=== PATIENT | male | born 1970 | race Caucasian/White ===

== ENCOUNTER 2024-12-28 13:37 | Emergency (ER) | payer BC, SELFPAY ==
[2024-12-28 13:51] VITALS: BP 128/96; PULSE 119; RESP 16; TEMP 36.2; O2SAT 100
--- NOTE | 2024-12-28 14:00 | ED.EXTPRO ---
HPI - Extremity Problem General Chief complaint: Extremity Problem,Nontraumatic Stated complaint: R SHOULDER PAIN Time Seen by Provider: 12/28/24 13:39 Source: patient Mode of arrival: ambulatory Limitations: no limitations History of Present Illness HPI Narrative: Maco is a 54-year-old male patient presenting to the clinic today with complaints of right shoulder pain x3 weeks. Reports 3 weeks ago he was working underneath a car with his hands. No known injury to his right shoulder. States there is pain to the anterior and lateral shoulder joint. Pain is worse with movement with intermittent radiation pain down into his arm. Denies any chest pain or shortness of breath. Has been taking ibuprofen for her symptoms. Currently rates his pain a 6/10 with rest and a 9/10 with movement Related Data Home Medications ?Medication ?Instructions ?Recorded ?Confirmed ?Last Taken ?Type Hydroxyzine Compound 12/28/24 Unknown History empagliflozin 10 mg tablet 10 mg PO DAILY 12/28/24 12/28/24 Unknown History (Jardiance) escitalopram oxalate 20 mg tablet 20 mg PO DAILY 12/28/24 12/28/24 Unknown History (Lexapro) gabapentin 12/28/24 Unknown History Allergies Allergy/AdvReac Type Severity Reaction Status Date / Time No Known Allergies Allergy Verified 12/28/24 14:00 Review of Systems Review of Systems: Pertinent positives per HPI. Patient denies any fever, chills, rash, headache, visual changes, dizziness, cough, runny nose, sore throat, shortness of breath, chest pain, palpitations, nausea, vomiting, diarrhea, constipation, abdominal pain, or any urinary issues. PMFSH Comments At the time of my signature, I reviewed and agree with the nursing past medical, surgical, social, and family history. There is no relevant family history pertinent to the patient complaint. Exam Narrative: General: Well-developed, well nourished, in no apparent distress Head: Normocephalic, atraumatic. Cardio: Regular rate and rhythm, s1 and s2 normal, no murmur appreciated. Resp: Clear to auscultation bilaterally, no rhonchi, rales, wheezing or rubs. Musculoskeletal: No deformity, no bruising or swelling noted, tender to palpation over the anterior and lateral right shoulder joint, pain with lifting his arm above his head, pain with empty can and full can testing without laxity, pain with posterior reach and cross-arm test, range of motion grossly normal, muscle strength strong and equal, peripheral pulse strong, no edema, no cyanosis, normal gait and station Course Course Emergency Course: Portions of this record may have been created with voice recognition software. Level of Care: Express Care Visit Vital Signs Vital signs: Vital Signs Temperature 36.2 C L 12/28/24 13:51 Pulse Rate 119 H 12/28/24 13:51 Respiratory Rate 16 12/28/24 13:51 Blood Pressure 128/96 H 12/28/24 13:51 Pulse Oximetry 100 12/28/24 13:51 Temperature 36.2 C L 12/28/24 13:51 Pulse Rate 119 H 12/28/24 13:51 Respiratory Rate 16 12/28/24 13:51 Blood Pressure 128/96 H 12/28/24 13:51 Pulse Oximetry 100 12/28/24 13:51 Vital signs reviewed MDM - Extremity (Nontraumatic) MDM Narrative Medical decision making narrative: At the time of visit patient is resting comfortably on the exam table. Patient appears to be nontoxic. Complaints of right shoulder pain x3 weeks. Reports 3 weeks ago he was working underneath a car with his hands. No known injury to his right shoulder. States there is pain to the anterior and lateral shoulder joint. Pain is worse with movement with intermittent radiation pain down into his arm. Denies any chest pain or shortness of breath. Has been taking ibuprofen for her symptoms. Currently rates his pain a 6/10 with rest and a 9/10 with movement. On exam patient has tenderness to the anterior and lateral over the rotator cuff, pain with empty can of full can without laxity, negative drop-arm test, pain with raising his arm above his head over the anterior and lateral shoulder, good posterior reach Plan: I suspect patient has right shoulder tendinitis. Arm sling was given. Prescription for Medrol Dosepak was sent to the pharmacy. Supportive measures were discussed with the patient and they voiced understanding discharge instructions and agrees to treatment plan. Return precautions reviewed Differential Diagnosis Differential diagnosis: Likely other (Shoulder strain, tendinitis, rotator cuff injury) Discharge Plan Discharge Clinical Impression: Right shoulder tendinitis Patient Disposition: Home Condition: Stable Instructions: Antibiotic Form, Rotator Cuff Tendinitis (ED) Additional Instructions: I suspect you have rotator cuff tendinitis. Take Medrol Dosepak as prescribed Rest, ice, and wear arm sling times 2-3 days as directed Tylenol/motrin for pain as discussed. May take 600 mg of Motrin every 8 hours and take 1 g of Tylenol every 8 hours as needed for pain Follow up with your PCP if symptoms persist more than 1 week. Patient Language: [place] Prescriptions: New methylprednisolone [Medrol (Jitendra)] 4 mg tablets,dose pack See Rx Instructions PO .COMPLEX Qty: 21 0RF Rx Instructions: orally per package directions No Action Jardiance 10 mg tablet 10 mg PO DAILY escitalopram oxalate [Lexapro] 20 mg tablet 20 mg PO DAILY gabapentin Hydroxyzine Compound Follow-up/Referrals: PHYSICIAN,GUEST ROOM INSPECTOR [Primary Care Provider, Internal Medicine] Time of Disposition: 14:01 Quality NIHSS Nursing Documentation ED NIHSS nursing documentation: reviewed/agree
== END 2024-12-28 14:18 | disposition home or self-care (01) ==
PROVIDERS: Emergency Provider Nurse Practitioner Family
DX: M67.813 Other specified disorders of tendon, right shoulder (principal); E11.9 Type 2 diabetes mellitus without complications; Z79.85 Long-term (current) use of injectable non-insulin antidiabetic drugs; G25.81 Restless legs syndrome; F32.A Depression, unspecified
CPT/HCPCS: 99213; A4565; G0463